=== PATIENT | female | born 1930 | race Caucasian/White ===

== ENCOUNTER 2016-09-20 23:26 | Emergency (ER) | payer MEDICARE, BC ==
--- NOTE | 2016-09-22 09:10 | ER ---
ADMIT: 09/20/2016 RM/LOC: ER [facility] MR#: [id number] [address] [address] [place] [address] Emergency Room Report SEX: F AGE: 86 : 1930 DATE: 09/20/2016 TIME: 6 Please refer to my T-sheet for complete H and P. HISTORY OF PRESENT ILLNESS: Briefly, the patient is an 86-year-old female who comes in with cough, sore throat, congestion, just not feeling well. It has been going on for about 2 to 3 days. She did not get the flu shot. She states she felt fine. She did not want to be seen, but her daughter and her both loaded her and brought her in. She states she is just kind of aching all over, just cough and feels raspy throat. PHYSICAL EXAMINATION: VITAL SIGNS: Her blood pressure is 144/58, pulse 80, respirations 12, temp 101, saturating 92% on room air. GENERAL: No acute distress. HEENT: She has swollen turbinates and rhinorrhea. Throat is slightly erythematous. LUNGS: Little bit coarse. HEART: Regular with a grade 2/6 systolic murmur. SKIN: No rash. NEURO: She is alert, oriented, nonfocal. EMERGENCY DEPARTMENT COURSE: Chest x-ray reveals some cardiomegaly, little bit of left lower lobe atelectasis. CBC was normal except for platelets 126. Chemistries normal except BUN 38, glucose 110, creatinine 2.1. Influenza was positive for influenza B. Her INR was slightly low at 1.3. I gave her DuoNeb here, dose of 200 Motrin, Tamiflu 75 p.o., she is ready for discharge. ASSESSMENT: 1. Acute influenza B. The patient wants to go home. Her sats are hanging right around 90-92, but she states she feels better. 2. Fever. PLAN: Tamiflu 75 b.i.d. for 5 days. Fluids, Tylenol. Return if worse. See Dr. Ingram this week. Paulie Villafana MD/ yandel JOB #: [id number] CC: Helder Marie MD, Attending Physician Radha Ingram MD, Family Physician
[2016-09-24] MEDS ORDERED: ROCALTROL DP0.25 MCG PO (10:54)
[2016-09-24] MEDS ORDERED: LIPITOR DPS10 MG PO (10:54)
[2016-09-24] MEDS ORDERED: NORVASC5 MG PO (10:54)
[2016-09-24] MEDS ORDERED: ALLOPURINOL100 MG PO (10:54)
[2016-09-24] MEDS ORDERED: NEURONTIN DPS300 MG PO (10:55)
[2016-09-24] MEDS ORDERED: ARICEPT DPS5 MG PO (10:55)
[2016-09-24] MEDS ORDERED: COREG DPS12.5 MG PO (10:55)
[2016-09-24] MEDS ORDERED: COZAAR DPS25 MG PO (10:56)
[2016-09-24] MEDS ORDERED: MEMANTINE HCL10 MG PO (10:56)
[2016-09-24] MEDS ORDERED: ACETAMINOPHEN325 MG PO (10:57)
[2016-09-24] MEDS ORDERED: QUETIAPINE FUMA25 MG PO (10:57)
[2016-09-24] MEDS ORDERED: COUMADIN DPS3 MG PO ×2 (10:57→10:58)
[2016-09-24] MEDS ORDERED: MYCOSTATIN PWD15 GM TP (10:58)
[2016-09-24] MEDS ORDERED: TAMIFLU30 MG PO (10:58)
== END 2016-09-21 01:05 | disposition home or self-care (01) ==
LOC: ER 23:26
DX: J10.1 Influenza due to other identified influenza virus with other respiratory manifestations (principal); I10 Essential (primary) hypertension; Z86.718 Personal history of other venous thrombosis and embolism; Z79.01 Long term (current) use of anticoagulants; Z79.899 Other long term (current) drug therapy

== ENCOUNTER 2016-09-22 10:20 | Inpatient (IN) | payer MEDICARE, BC ==
[~2016-09-22] VITALS: Ht 43.2 cm; Wt 85.5 kg
--- NOTE | 2016-09-24 03:45 | ER ---
ADMIT: 09/22/2016 RM/LOC: [address] [facility] MR#: [id number] [address] [address] MOUSTAPHA MASON [facility], [place] [address] Emergency Room Report SEX: F AGE: 86 : 1930 DATE: 09/22/2016 TIME: 10:20 Please refer to my T-sheet for complete H and P. Briefly, the patient is an 86-year-old who I actually saw 2 days ago and diagnosed with influenza B. She has been at home. She has not been drinking maybe as much she was in assisted living. She went to the bathroom and passed out on the toilet. She comes in with minimal complaints. Did not fall or hurt herself. Says she denies any chest pain. She says she was on the toilet, next thing she knows the paramedics were bringing her here. PHYSICAL EXAMINATION: VITAL SIGNS: Blood pressure 103/56, pulse 70, respirations 16, temp 97.1, and sat 97%. GENERAL: No acute distress. HEENT: Mild dry mucous membranes. LUNGS: Clear. HEART: Regular. ABDOMEN: Soft. SKIN: No rash. NEURO: She is alert, oriented, nonfocal. EMERGENCY DEPARTMENT COURSE: Chest x-ray revealed no acute infiltrate. CBC was normal except white count 4.3 and platelets 114. Chemistries normal except BUN 42, creatinine 2.1. INR is 1.27. Troponin negative. EKG was sinus rhythm, rate 67, left bundle-branch block. We gave her 800 mL of saline. Her orthostatics were still slightly positive and she was symptomatic. Finished the liter. I talked to Dr. Ingram who will admit to the hospital. ASSESSMENT: 1. Syncope. 2. Recent influenza. 3. Dehydration. 4. Weakness. PLAN: Admit to the hospital under the care of Dr. Ingram. Paulie Villafana MD/ yandel JOB #: [id number] CC: Radha Ingram MD, Attending Physician Radha Ingram MD, Family Physician
--- NOTE | 2016-09-24 07:49 | HP ---
ADMIT: 09/22/2016 RM/LOC: 418 [facility] MR#: [id number] [address] [address] [place], [place] [id number] History and Physical SEX: F AGE: 86 : 1930 DATE OF SERVICE: HISTORY OF PRESENT ILLNESS: Ms. Mason is an 86-year-old, white female, who has progressive memory loss, history of microscopic polyarteritis nodosa with renal insufficiency, distant hemodialysis. Currently, renal insufficiency with a creatinine runs around 2.1 range, hypertension, gout, hyperlipidemia, history of hysterectomy, status post ovarian cancer, history of DVT and PE, on chronic anticoagulation, history of fractured wrist, presented to the emergency room earlier in the week with weakness and cough. She was found to have influenza B was sent back to the nursing facilities assisted living and had a syncopal episode while sitting on the toilet today, lightheaded, dizzy, brought to the emergency room for further evaluation, was orthostatic. Her white count was normal at 4.3, hemoglobin 13.4, her creatinine was stable at 2.1. INR is subtherapeutic at 1.27. She at this time is admitted for continued evaluation and care and treatment of orthostasis and dehydration. SOCIAL HISTORY: She currently lives in assisted living. She is . No tobacco or alcohol. FAMILY HISTORY: Noncontributory. REVIEW OF SYSTEMS: She has had no fever or chills. She has had progressive decline with memory loss and was seen within the last two weeks at a memory clinic in [place]. Medications were adjusted. She has had no anterior chest pain chest pressure, increasing shortness breath, or respiratory distress. PHYSICAL EXAMINATION: GENERAL: She is alert. HEENT: Exam is normal. HEART: Regular rhythm. LUNGS: Clear, but diminished to auscultation. ABDOMEN: Soft. EXTREMITIES: No evidence of edema. She is confused. ASSESSMENT: Admission of an elderly white female with influenza B with dehydration, hypotension, lightheadedness, dizziness. We will admit to [facility] for observation. We will rehydrate and ensure that she has a safe place to return back to. Continue her home medications as appropriate. Continue close followup. Radha Ingram MD/ yandel JOB #: [id number] CC: Radha Ingram, Attending Physician Radha Ingram, Family Physician
[2016-09-24] MEDS ORDERED: ROCALTROL DP0.25 MCG PO (10:54)
[2016-09-24] MEDS ORDERED: NORVASC5 MG PO (10:54)
[2016-09-24] MEDS ORDERED: ALLOPURINOL100 MG PO (10:54)
[2016-09-24] MEDS ORDERED: LIPITOR DPS10 MG PO (10:54)
[2016-09-24] MEDS ORDERED: ARICEPT DPS5 MG PO (10:55)
[2016-09-24] MEDS ORDERED: COREG DPS12.5 MG PO (10:55)
[2016-09-24] MEDS ORDERED: NEURONTIN DPS300 MG PO (10:55)
[2016-09-24] MEDS ORDERED: COZAAR DPS25 MG PO (10:56)
[2016-09-24] MEDS ORDERED: MEMANTINE HCL10 MG PO (10:56)
[2016-09-24] MEDS ORDERED: ACETAMINOPHEN325 MG PO (10:57)
[2016-09-24] MEDS ORDERED: COUMADIN DPS3 MG PO ×2 (10:57→10:58)
[2016-09-24] MEDS ORDERED: QUETIAPINE FUMA25 MG PO (10:57)
[2016-09-24] MEDS ORDERED: TAMIFLU30 MG PO (10:58)
[2016-09-24] MEDS ORDERED: MYCOSTATIN PWD15 GM TP (10:58)
--- NOTE | 2016-10-20 08:07 | DS ---
ADMIT: 09/22/2016 RM/LOC: 418 [facility] MR#: [id number] [address] [address] [place] [address] Discharge Summary SEX: F AGE: 86 : 1930 ADMISSION DATE: 09/22/2016 DISCHARGE DATE: 09/23/2016 DISCHARGE DIAGNOSES: Recent influenza B with evidence of orthostasis, dehydration, known renal insufficiency with history of microscopic polyarteritis nodosa, hypertension, gout, hyperlipidemia, and progressive memory loss. HISTORY OF PRESENT ILLNESS: Well documented in her H and P. LABORATORY AND RADIOGRAPHIC ASSESSMENT: As follows. On admission, her white count was 4.3, hemoglobin 13.3, and platelet count of 114,000. INR of 1.27. Her sodium was 140, potassium 4.3, BUN and creatinine 42 and 2.1. At the time of discharge, creatinine was 1.5. Her chest x-ray showed low volume with peribronchial cuffing centrally, overall no acute changes. Repeat chest x-ray was negative. EKG shows sinus rhythm, prolonged QT with left axis deviation. HOSPITAL COURSE: Mrs. Mason is a very nice 86-year-old, white female, who has a lot of family support, who was admitted to [facility] with lightheadedness, dizziness, and syncopal episode. She had been recovering from a bout of influenza B, and was admitted to the hospital with evidence of progressive renal insufficiency as well as dehydration. Initially, on admission, she was given IV fluids. She underwent evaluation by PT and OT. She was orthostatic. She had continued improvement. She was treated with Tamiflu 35 mg 1 tablet p.o. b.i.d. She was discharged to [place]. This is where she usually lives. DISCHARGE MEDICATIONS: Please see her MAR for her discharge medications. CONDITION: She was discharged in good condition. She will complete her Tamiflu. Radha Ingram MD/ yandel JOB #: [id number] CC: Radha Ingram MD, Attending Physician Radha Ingram MD, Family Physician
== END 2016-09-23 13:20 | disposition home or self-care (01) | DRG 641 ==
LOC: ER 10:20 → 4PCU 12:00
PROVIDERS: ADMIT Internal Medicine
DX: E86.0 Dehydration (principal); I95.9 Hypotension, unspecified; J10.1 Influenza due to other identified influenza virus with other respiratory manifestations; M10.9 Gout, unspecified; R42 Dizziness and giddiness; N18.9 Chronic kidney disease, unspecified; R41.3 Other amnesia; I12.9 Hypertensive chronic kidney disease with stage 1 through stage 4 chronic kidney disease, or unspecified chronic kidney disease; E78.5 Hyperlipidemia, unspecified; Z85.43 Personal history of malignant neoplasm of ovary; Z86.711 Personal history of pulmonary embolism; Z86.718 Personal history of other venous thrombosis and embolism; Z79.01 Long term (current) use of anticoagulants

== ENCOUNTER → 2016-10-02 | Outpatient (CLI) | payer MEDICARE, BC ==
[~2016-10-02] MED LIST: ACETAMINOPHEN325 MG PO; ALLOPURINOL100 MG PO; ARICEPT DPS5 MG PO; COREG DPS12.5 MG PO; COUMADIN DPS3 MG PO; COZAAR DPS25 MG PO; LIPITOR DPS10 MG PO; MEMANTINE HCL10 MG PO; MYCOSTATIN PWD15 GM TP; NEURONTIN DPS300 MG PO; NORVASC5 MG PO; QUETIAPINE FUMA25 MG PO; ROCALTROL DP0.25 MCG PO; TAMIFLU30 MG PO
== END | disposition home or self-care (01) ==
LOC: RAD.S 09-21 14:00
DX: F03.90 Unspecified dementia, unspecified severity, without behavioral disturbance, psychotic disturbance, mood disturbance, and anxiety (principal); J32.0 Chronic maxillary sinusitis; J32.2 Chronic ethmoidal sinusitis